=== PATIENT | male | born 1985 | race Caucasian/White ===

== ENCOUNTER 2021-05-20 12:26 | Emergency (ER) | payer SELFPAY ==
--- NOTE | ~2021-05-20 | XR_ITS ---
EXAMINATION: XR CHEST CLINICAL INFORMATION: Chest pain COMPARISON: None TECHNIQUE: Frontal view of the chest was obtained. FINDINGS: There is no pneumothorax or pleural reaction or effusion. The lungs are clear. There is no airspace consolidation or groundglass opacity. The heart is normal in size. The hilar and mediastinal contours and visualized bony structures are unremarkable. XR/XR chest 1V IMPRESSION: Unremarkable examination.
[2021-05-20 13:23] VITALS: BP 146/82; PULSE 59; RESP 20; TEMP 36.5; O2SAT 100; BMI 26.2
--- NOTE | 2021-05-20 13:27 | ECG_ITS ---
Test Reason : CHEST PAIN Blood Pressure : / mmHG Vent. Rate : 065 BPM Atrial Rate : 065 BPM P-R Int : 162 ms QRS Dur : 090 ms QT Int : 388 ms P-R-T Axes : 020 052 033 degrees QTc Int : 403 ms Normal sinus rhythm Normal ECG No previous ECGs available Referred By: Generic ED Physician Electronically Signed By:Mo Garibay
[2021-05-20 13:37] LABS: MANUAL DIFF FLAG NO
[2021-05-20 13:39] LABS: Basophils Percent Auto 0.2 % (0-2); Eosinophils Absolute Auto 0.1 X10*3/uL (0.0-0.4); Eosinophils Percent Auto 1.1 % (0-4); Hematocrit 45.8 % (42.0-52.0); Hemoglobin 15.9 g/dl (14.0-18.0); Imm Gran Abs Auto 0.03 X10*3/uL (0.00-0.03); Imm Gran Pct Auto 0.3 % (0.0-0.4); Lymphocytes Absolute Auto 1.7 X10*3/uL (1.2-4.9); Lymphocytes Percent Auto 19.2 % (20-40); Mean Corpuscular HGB Conc 34.7 g/dl (31.0-36.0); Mean Corpuscular Hemoglobin 30.8 pg (27.0-33.0); Mean Corpuscular Volume 88.8 fL (80.0-98.0); Mean Platelet Volume 9.6 fL (9.4-12.4); Monocytes Absolute Auto 0.5 X10*3/uL (0.1-1.2); Neutrophils Absolute Auto 6.4 x10*3/uL (2.0-8.3); Neutrophils Percent Auto 73.2 % (45-73); Platelet Count 214 X10*3/uL (160-400); Red Blood Count 5.16 X10*6/uL (4.60-5.80); Red Cell Distribution Width 12.7 % (11.0-16.0); White Blood Count 8.7 X10*3/uL (4.8-10.8)
[2021-05-20 13:52] LABS: Anion Gap 10 (12-20); Blood Urea Nitrogen 11 mg/dL (9-16); Calcium 9.5 mg/dL (8.4-10.2); Carbon Dioxide 25 mmol/L (22-29); Chloride 108 mmol/L (96-108); Creatinine Clr Calc Pharmacy 146.3; Estimated Glomerular Filt Rate > 60; Glucose Random 98 mg/dL (60-115); Potassium 4.1 mmol/L (3.3-5.1); Sodium 139 mmol/L (135-145)
[2021-05-20 13:58] LABS: Troponin-I High Sensitivity < 3.5 ng/L (<3.5-35.0)
--- NOTE | 2021-05-20 18:58 | ED_ITS ---
HPI - Chest Pain General Chief Complaint: Chest Pain Stated Complaint: chest pain diff breathing Time Seen by Provider: 05/20/21 18:46 Source: patient Mode of arrival: ambulatory Limitations: no limitations History of Present Illness HPI narrative: Patient comes emergency room complaining of chest pain on the left side that started approximately around noon while he was driving, then self-resolved 2 hours later. At this time, patient is asymptomatic, states that he has no chest pain, no shortness of breath, no other symptoms. Patient states it is the 1st time that it happens and scared his , who made him come to the emergency room Related Data Allergies Allergy/AdvReac Type Severity Reaction Status Date / Time No Known Allergies Allergy Unverified 05/20/21 13:28 Review of Systems Review of Systems: Constitutional : No Weight loss, No Fever, No Chills, No Night Sweats, No Fatigue, No Malaise ENT/Mouth : No Hearing loss, No Ear Pain, No Nasal Congestion, No Sinus Pain, No Hoarseness, No sore throat, No Rhinorrhea, No Swallowing Difficulty Eyes: No Eye Pain, No Swelling, No Redness, No Foreign Body, No Discharge, No Vision Changes Cardiovascular : 1 episode of chest pain that lasted couple of hours between noon and 14:00, patient has been pain-free for 5 hours. SOB, No Dyspnea on Exertion, No Orthopnea, No Edema, No Palpitations Respiratory : No Cough, No Sputum, No Wheezing, No Smoke Exposure, No Dyspnea Gastrointestinal : No Nausea, No Vomiting, No Diarrhea, No Constipation, No abdominal Pain, No Hematochezia, No Melena Genitourinary : no irregular bleeding, No Dysuria, No Urinary Frequency, No Hematuria, No Urinary Incontinence, No Urgency, No Flank Pain, No Urinary Flow Changes, No Hesitancy Musculoskeletal : No joint pain, No Myalgias, No Joint Swelling Skin : No Skin Lesions, No rash Neuro : No Weakness, No Numbness, No Paresthesias, No Loss of Consciousness, No Dizziness, No Headache Psych : No Anxiety/Panic, No Depression, No SI/HI/AH/VH, No Social Issues, Heme/Lymph: No Bruising, No Bleeding,No Lymphadenopathy Endocrine : No Polyuria, No Polydipsia, No Temperature Intolerance PMFSH Past Medical History Medical History Anxiety Depression Social History Social History Advance Directives: No Advance Directives Information Provided: Yes Physical Exam Vital Signs: Vital Signs: Last Vital Signs Temp 97.7 F 05/20/21 13:23 Pulse 59 05/20/21 13:23 Resp 20 05/20/21 13:23 BP 146/82 H 05/20/21 13:23 Pulse Ox 100 05/20/21 13:23 BMI result Body Mass Index 26.2 Const: Other: Appearance: Alert. Oriented X3. No acute distress. Eyes: Pupils equal, round and reactive to light. ENT: Pharynx normal. Neck: Normal inspection. Neck supple. No lymph nodes noted. No crepitus CVS: Normal heart rate and rhythm. Pulses normal. Normal S1 and S2 Respiratory: No respiratory distress. Breath sounds normal. No Wheezing. No rales Abdomen: Soft and nontender. No rigidity. No distention. good BS x4 Skin: Skin warm and dry. Normal skin color. Normal skin turgor. Extremities: No lower extremity edema. No Lacerations. No Rash Neuro: Oriented X 3. No motor deficit. No sensory deficit. Moving all extermities. No slurred speech. Course Course Course Narrative: I discussed the labs and imaging with the patient, no acute findings. Patient has been pain free for over 5 hours. Discussed with patient that if he continues having intermittent chest pains, he needs to follow up with his primary care physician and will likely need a stress test. MDM - Chest Pain Lab Data Result diagrams: 05/20/21 13:33 05/20/21 13:33 Labs: Lab Results 05/20/21 05/20/21 05/20/21 Range/Units 13:33 13:33 13:33 WBC 8.7 (4.8-10.8) X10*3/uL RBC 5.16 (4.60-5.80) X10*6/uL Hgb 15.9 (14.0-18.0) g/dl Hct 45.8 (42.0-52.0) % MCV 88.8 (80.0-98.0) fL MCH 30.8 (27.0-33.0) pg MCHC 34.7 (31.0-36.0) g/dl RDW 12.7 (11.0-16.0) % Plt Count 214 (160-400) X10*3/uL MPV 9.6 (9.4-12.4) fL Immature Gran % (Auto) 0.3 (0.0-0.4) % Neut % (Auto) 73.2 H (45-73) % Lymph % (Auto) 19.2 L (20-40) % [place] % (Auto) 6.0 (2-11) % Eos % (Auto) 1.1 (0-4) % Baso % (Auto) 0.2 (0-2) % Lymph # (Auto) 1.7 (1.2-4.9) X10*3/uL [place] # (Auto) 0.5 (0.1-1.2) X10*3/uL Eos # (Auto) 0.1 (0.0-0.4) X10*3/uL Baso # (Auto) 0.0 (0.0-0.2) X10*3/uL Abs Immat Gran (auto) 0.03 (0.00-0.03) X10*3/uL Absolute Neuts (auto) 6.4 (2.0-8.3) x10*3/uL Absolute Nucleated RBC 0.000 (0.0-0.012) X10*3/uL Nucleated RBC % (auto) 0.0 (0.0-0.2) /100WBC Sodium 139 (135-145) mmol/L Potassium 4.1 (3.3-5.1) mmol/L Chloride 108 (96-108) mmol/L Carbon Dioxide 25 (22-29) mmol/L Anion Gap 10 L (12-20) BUN 11 (9-16) mg/dL Creatinine 0.85 (0.5-1.4) mg/dL Estim Creat Clear Calc 146.3 Estimated GFR > 60 Random Glucose 98 (60-115) mg/dL Calcium 9.5 (8.4-10.2) mg/dL Troponin I High Sens < 3.5 (<3.5-35.0) ng/L Imaging Data Chest x-ray: Radiologist's impression: FINDINGS: There is no pneumothorax or pleural reaction or effusion. The lungs are clear. There is no airspace consolidation or groundglass opacity. The heart is normal in size. The hilar and mediastinal contours and visualized bony structures are unremarkable. XR/XR chest 1V IMPRESSION: Unremarkable examination. ECG Data ECG #1: Attestation: I personally reviewed and interpreted this ECG as follows: (Normal sinus rhythm, heart rate 65, no ST segment depression elevation, to person and dizzy for) Discharge Plan Discharge Clinical Impression: Atypical chest pain Patient Disposition: Home, Self-Care Instructions: Chest Pain (ED) Additional Instructions: Please follow-up with your primary care physician tomorrow. If you have any worsening or new symptoms, please return to the emergency room or call 911
== END 2021-05-20 19:07 | disposition home or self-care (01) ==
PROVIDERS: Emergency Provider Emergency Medicine
DX: R07.89 Other chest pain (principal)
CPT/HCPCS: 36415; 71045; 80048; 84484; 85025; 93005; 99283

== ENCOUNTER 2022-02-01 08:23 | Outpatient (REF) | payer OTHER, SELFPAY ==
--- NOTE | ~2022-02-01 | US_ITS ---
EXAMINATION: US SCROTUM CLINICAL INFORMATION: Right testicular pain. COMPARISON: None TECHNIQUE: A sonogram of the scrotum was performed assessing lebron-scale appearance and color Doppler flow. Spectral Doppler analysis of the arterial and venous flow were performed in the testes bilaterally. FINDINGS: RIGHT: Right testicle measures 4.83 x 2.17 x 3.19 cm, volume 17.5 mL. No focal testicular parenchymal lesions are visualized. Spectral Doppler analysis of the arterial and venous flow is normal in the right testis. Right epididymal head is normal in size. Small hydrocele. Right epididymal Doppler flow is normal. Varicocele noted. LEFT: Left testicle measures 4.90 x 1.95 x 3.51 cm, volume 17.6 mL. No focal testicular parenchymal lesions are visualized. Spectral Doppler analysis of the arterial and venous flow is normal in the left testis. Left epididymal head is normal in size. Small hydrocele. Left epididymal Doppler flow is normal. Varicocele noted. US/US scrotum IMPRESSION: Bilateral hydroceles and varicoceles.
[2022-02-01 11:09] LABS: MANUAL DIFF FLAG NO
[2022-02-01 11:32] LABS: Basophils Percent Auto 0.2 % (0-2); Eosinophils Absolute Auto 0.2 X10*3/uL (0.0-0.4); Eosinophils Percent Auto 3.4 % (0-4); Hematocrit 45.9 % (42.0-52.0); Hemoglobin 15.8 g/dl (14.0-18.0); Imm Gran Abs Auto 0.01 X10*3/uL (0.00-0.03); Imm Gran Pct Auto 0.2 % (0.0-0.4); Lymphocytes Absolute Auto 1.7 X10*3/uL (1.2-4.9); Lymphocytes Percent Auto 29.9 % (20-40); Mean Corpuscular HGB Conc 34.4 g/dl (31.0-36.0); Mean Corpuscular Hemoglobin 30.4 pg (27.0-33.0); Mean Corpuscular Volume 88.3 fL (80.0-98.0); Mean Platelet Volume 10.9 fL (9.4-12.4); Monocytes Absolute Auto 0.5 X10*3/uL (0.1-1.2); Monocytes Percent Auto 8.6 % (2-11); Neutrophils Absolute Auto 3.2 x10*3/uL (2.0-8.3); Neutrophils Percent Auto 57.7 % (45-73); Platelet Count 251 X10*3/uL (160-400); Red Cell Distribution Width 12.8 % (11.0-16.0); White Blood Count 5.6 X10*3/uL (4.8-10.8)
[2022-02-01 11:33] LABS: Appearance Urine Turbid; Color Urine Yellow; Glucose Urine UA Negative (Negative); Leukocyte Esterase Urine Trace (Negative); Nitrite Urine Negative (Negative); Specific Gravity - Urine 1.025 (1.005-1.025); Urine Blood Negative (Negative); Urine Ketones Negative (Negative); Urine Protein Negative (Neg-Trace)
[2022-02-01 11:40] LABS: Bacteria Urine None Seen (None Seen); Hyaline Casts Urine 0-2 /LPF (0-2); RBC Urine 0-2 /HPF (0-2); Squamous Epithelial Cell Urine 0-2 /HPF (0-2); WBC Urine 0-5 /HPF (0-5)
[2022-02-01 11:44] LABS: UACC Culture Trigger NO
[2022-02-01 12:05] LABS: Alanine Aminotransferase 24 U/L (0-40); Albumin Level 4.2 g/dL (3.5-5.0); Alkaline Phosphatase 80 U/L (39-117); Anion Gap 13 (12-20); Aspartate Amino Transferase 25 U/L (5-37); Bilirubin Total 0.5 mg/dL (0.0-1.0); Blood Urea Nitrogen 14 mg/dL (9-16); Calcium 8.9 mg/dL (8.4-10.2); Carbon Dioxide 22 mmol/L (22-29); Chloride 110 mmol/L (96-108); Cholesterol 196 mg/dL; Estimated Glomerular Filt Rate > 60; Glucose Fasting 103 mg/dL (60-99); HDL Cholesterol 42 mg/dL; LDL Cholesterol Calculated 138 mg/dl; Potassium 4.3 mmol/L (3.3-5.1); Sodium 141 mmol/L (135-145); Total Protein 6.3 g/dL (6.5-8.0); Triglycerides 84 mg/dL
[2022-02-01 12:07] LABS: TSH reflex Free T4 0.88 uIU/mL (0.32-4.0)
== END 2022-02-01 08:24 | disposition home or self-care (01) ==
LOC: HO.HMGCX 08:23
PROVIDERS: PCP Nurse Practitioner Family; Visit Provider Nurse Practitioner Family
DX: Z00.00 Encounter for general adult medical examination without abnormal findings (principal); N50.811 Right testicular pain; Z80.43 Family history of malignant neoplasm of testis
CPT/HCPCS: 36415; 76870; 80053; 80061; 81001; 84443; 85025

== ENCOUNTER 2022-11-10 12:12 | Outpatient (REF) | payer OTHER, SELFPAY ==
--- NOTE | ~2022-11-10 | XR_ITS ---
EXAMINATION: XR FINGER, RIGHT CLINICAL INFORMATION: Painful thumb COMPARISON: None available. TECHNIQUE: 3 views of the right thumb. FINDINGS: The bones and soft tissues are unremarkable. A tiny osteophyte is present on the dorsal surface of the proximal end of the distal phalanx. No fracture. Alignment is anatomic. Joint spaces are maintained. XR/XR finger RT min 2V IMPRESSION: Minimal degenerative change. No acute finding.
== END 2022-11-10 12:13 | disposition home or self-care (01) ==
LOC: HO.HMGCX 12:12
PROVIDERS: PCP Nurse Practitioner Family; Visit Provider Nurse Practitioner Family
DX: M79.644 Pain in right finger(s) (principal)
CPT/HCPCS: 73140

== ENCOUNTER 2022-12-09 11:58 | Outpatient (REF) | payer OTHER, SELFPAY ==
--- NOTE | ~2022-12-09 | XR_ITS ---
EXAMINATION: XR HAND, RIGHT CLINICAL INFORMATION: Right hand pain COMPARISON: November 10, 2022 TECHNIQUE: PA, lateral, and oblique views of the right hand. FINDINGS: The bones and soft tissues are normal. No fracture. Alignment is anatomic. Joint spaces are maintained. No erosions or soft tissue calcifications. XR/XR hand RT min 3V IMPRESSION: Normal right hand.
== END 2022-12-09 11:59 | disposition home or self-care (01) ==
LOC: HO.HOSX 11:58
PROVIDERS: Visit Provider Physician Assistant
DX: S60.111A Contusion of right thumb with damage to nail, initial encounter (principal)
CPT/HCPCS: 73130

== ENCOUNTER 2022-12-09 12:46 | Outpatient (AMB) | payer OTHER, SELFPAY ==
[2022-12-09 12:54] VITALS: BMI 25.0
--- NOTE | 2022-12-09 12:54 | MHC.OFFVIS ---
Intake Vital Signs 12/09/22 12:54 Height 6 ft 3 in Weight 200 lb BMI 25.0 Intake Visit Reasons: New Pt - right thumb pain, DOI 11/10/22 Intake Note: Inder 37 yr old male who is right hand dominant presents today with his son Boy for his right thumb pain. States his shut his car door on his thumb 11/10/22. States he saw his PCP and was referred to orthopedic. Currently states he has on and off numbness and pain with use of thumb. Patient has concerns of infection. Allergies No Known Allergies Allergy (Verified 12/09/22 12:58) HPI New Pt - right thumb pain, DOI 11/10/22 HPI Details 37-year-old right hand dominant male who presents in the office today with is son Boy, as a new patient, for an evaluation of right thumb pain. The patient was seen in the Walk-In clinic on 11/10/2022 status post closing his thumb in the car door. The patient reports he has intermittent numbness and pain with use of the thumb. He expresses a concern for infection. [facility] Medical History Anxiety Depression Family History Father Substance use disorder Mental health disorder Mother Mental health disorder Social History Housing: Apartment Patient Tobacco Use Status: Current everyday Tobacco user Cigarette Packs Per Day: 1 e-Cigarette/Vaping Use: Never Used Second Hand Smoke Exposure: Yes service: No Current occupational status: employed Current occupation: [employer] Current occupational exposures/hazards: Yes Cognitive needs: No Hearing needs: No Vision needs: No Review of Systems Const All systems reviewed & are unremarkable except as noted in HPI and below Physical Exam Vital Signs: BMI result Body Mass Index 25.0 Const General: cooperative and no acute distress Orientation/consciousness: patient oriented x3 Resp Effort & Inspection: normal respiratory effort and able to speak in complete sentences Cardio Rate: regular rate Peripheral pulses: Peripheral pulses 2+ throughout GI Palpation (GI): Soft to palpation Skin Lesions: no lesions Rashes: no rashes Neuro General: patient oriented x3 Extrem Other: Right thumb: Subungual hematoma noted. Nail bed has begun to separate from the matrix. No signs of infection. Able to flex at the IP joint. No laxity with radial or ulnar deviation at the CMC or PIP joint. Able to perform full finger flexion, extension, abduction, adduction, finger cross, okay sign, and thumbs up without deficit. Able to make a closed fist. Psych Mental Status: mental status grossly normal Assessment & Plan Assessment & Plan (1) Contusion of right thumb: Code(s): S60.011A - Contusion of right thumb without damage to nail, initial encounter (2) Subungual hematoma of right thumb: Code(s): S60.111A - Contusion of right thumb with damage to nail, initial encounter Plan Mr. Langford is a 37-year-old right hand dominant male who presents in the office today with is son Boy, as a new patient, for an evaluation of right thumb pain. The patient was seen in the Walk-In clinic on 11/10/2022 status post closing his thumb in the car door. The patient reports he has intermittent numbness and pain with use of the thumb. He expresses a concern for infection. The patient can return to normal activities as tolerated. He was educated on signs of infection, which are as follows but not limited to erythema, edema, drainage, or warmth. If he is to experience any of these symptoms he is to contact the office immediately or present to the ED. Follow up will be PRN, or sooner if needed. X-rays of the right hand which were obtained while in the office today and were reviewed by me, Hermila Morales PA-C, revealed no acute fractures or dislocation. Orders: Orders XR hand RT min 3V Today M79.643 - Pain in unspecified hand Patient Instructions: Scribed for Hermila Morales PA-C by Camille Cruz senior medical writer, on 12/09/2022 at 12:51 pm, EST. Your attestation Coding Level of Care Code New Pt Level 4 (32069) Diagnoses Contusion of right thumb S60.011A Subungual hematoma of right thumb S60.111A
== END 2022-12-09 13:18 | disposition home or self-care (01) ==
PROVIDERS: PCP Nurse Practitioner Family; Visit Provider Physician Assistant
DX: S60.111A Contusion of right thumb with damage to nail, initial encounter (principal)
CPT/HCPCS: 99203

== ENCOUNTER 2023-02-08 09:22 | Outpatient (AMB) | payer OTHER, SELFPAY ==
--- NOTE | 2023-02-08 09:30 | MHC.PC.OV ---
Vital Signs 02/08/23 09:31 Height 6 ft 3 in Weight 197 lb 4 oz BMI 24.7 BP 110/70 Blood Pressure Location Rt brachial Position Sitting Pulse 73 Pulse Source Pulse Oximeter Pulse Oximetry (%) 97 Oxygen Delivery Method Room Air Intake Visit Reasons: Annual PE/Over due Allergies No Known Allergies Allergy (Verified 02/08/23 09:32) Tobacco use date assessed: 02/08/23 Dental Screening Dental Screen Date: 02/08/23 Did you have a dental visit in the last 12 months?: No Did you have a dental problem in the last 6 months where you did not have access to dental care?: No Was dental information given to patient?: Patient has dentist HPI Annual PE/Over due HPI Details Pt is here for a PE. Will order labs. Pt is interested in seeing a therapist. He reports family issues that are causing increased anxiety/depression. Will have coordinator speak with pt. Denies any SI and HI. PFSH Medical History Depression Anxiety Family History Father Substance use disorder Mental health disorder Mother Mental health disorder Social History Housing: Apartment Patient Tobacco Use Status: Current everyday Tobacco user Cigarette Packs Per Day: 1 e-Cigarette/Vaping Use: Never Used Second Hand Smoke Exposure: Yes service: No Current occupational status: employed Current occupation: [employer] Current occupational exposures/hazards: Yes Cognitive needs: No Hearing needs: No Vision needs: No Questionnaire Thrive Questionnaire Date Thrive assessed: 11/09/21 MEGAN-7 AMB Questionnaire MEGAN-7 Date MEGAN - 7 assessed: 11/09/21 Source: Developed by Drs. Ej Martínze, Edelmira Chou, Juan Carlos Smith and colleagues, with an educational dorene from [employer]. Review of Systems Const Denies chills and Denies fever(s) Eyes Denies blurry vision ENT Denies vertigo, Denies dizziness and Denies sore throat Card Denies chest pain at rest, Denies chest pain with activity, Denies diaphoresis, Denies dyspnea and Denies dyspnea on exertion Resp Denies cough, Denies dyspnea, Denies dyspnea on exertion and Denies wheezing GI Denies abdominal pain, Denies melena, Denies hematochezia, Denies constipation, Denies diarrhea and Denies loose stools Denies hematuria Musc Denies numbness and Denies tingling Skin/Breast Denies lesions Neuro Denies vertigo, Denies dizziness, Denies numbness and Denies tingling Psych Reports anxiety, Reports depression, Denies homicidal ideation, Denies suicidal ideation and Denies other (substance abuse) Aller/Immun Denies wheezing Physical exam (Primary Care) Vital Signs: Last Vital Signs Pulse 73 02/08/23 09:31 BP 110/70 02/08/23 09:31 Pulse Ox 97 02/08/23 09:31 Oxygen Delivery Method Room Air 02/08/23 09:31 BMI result Body Mass Index 24.7 Tobacco/Smoking Status: Tobacco use Status Tobacco use date assessed 02/08/23 02/08/23 09:34 Patient Tobacco Use Status Current everyday Tobacco 02/08/23 09:34 e-Cigarette/Vaping Use Never Used 02/08/23 09:34 Thrive Assessment: Date of Thrive Assessment Date Thrive assessed 11/09/21 02/08/23 09:34 Const General: cooperative Nutritional Appearance: well nourished Orientation/consciousness: patient oriented x3 HENMT Head: Yes normal to inspection, Yes normocephalic and Yes atraumatic Ears: TM's normal bilaterally Eyes General: appearance normal, both eyes and all related structures Alignment and Position: alignment normal and position normal Neck Neck: Yes normal visual inspection and Yes no lymphadenopathy Thyroid: Thyroid normal Resp Effort & Inspection: normal respiratory effort Auscultation: clear to auscultation bilaterally Cardio Rate: regular rate Rhythm: regular rhythm Heart sounds: S1 normal heart sound present, S2 normal heart sound present and no murmurs GI Palpation (GI): Soft to palpation and nontender Auscultation: normal bowel sounds Male General Exam: Yes normal external exam Penis: normal penis Scrotum: scrotum normal, testes descended bilaterally and no inguinal hernias Testes: no testicular mass Skin Rashes: no rashes Neuro General: patient oriented x3, moves all extremities, no focal motor deficits and deep tendon reflexes 2+ bilaterally Romberg Test: Negative Psych Appearance: grossly normal Mental Status: mental status grossly normal Speech and movement: Normal speech and movement present Affect: normal affect Attitude: cooperative Thought process: Normal thought process present Thought content: Normal thought content present Insight: Good insight present (Psych) Judgement: Good judgement present (Psych) Assessment and Plan Assessment & Plan (1) Physical exam: Code(s): Z00.00 - Encounter for general adult medical examination without abnormal findings Plan: Labs ordered Plan The patient agreed to the use of a medical chief technician for this encounter. Scribed for EMPERATRIZ Mallory by Katie Herzog medical chief technician, on 02/08/2023 at 09:45 EST. Orders: Orders Complete Blood Count Auto Diff Today Z00.00 - Encounter for general adult medical examination without abnormal findings TSH reflex Free T4 Today Z00.00 - Encounter for general adult medical examination without abnormal findings Comprehensive [place]. Panel Fast Today Z00.00 - Encounter for general adult medical examination without abnormal findings UA CC w/rflx Micro + Cult Today Z00.00 - Encounter for general adult medical examination without abnormal findings Lipid Panel Today Z00.00 - Encounter for general adult medical examination without abnormal findings Coding Level of Care Code Est Pt Prev Care 18-39y(58961) Diagnoses Physical exam Z00.00
[2023-02-08 09:31] VITALS: BP 110/70; PULSE 73; O2SAT 97; BMI 24.7
== END 2023-02-08 10:34 | disposition home or self-care (01) ==
PROVIDERS: Visit Provider Nurse Practitioner Family
DX: Z00.00 Encounter for general adult medical examination without abnormal findings (principal)
CPT/HCPCS: 99395

== ENCOUNTER 2024-07-31 08:07 | Outpatient (AMB) | payer BC, SELFPAY ==
[2024-07-31 08:09] VITALS: BP 130/80; PULSE 86; TEMP 37.3; O2SAT 98
--- NOTE | 2024-07-31 08:09 | AM.OFFWIN_ITS ---
Intake Vital Signs 07/31/24 08:09 Weight 220 lb BP 130/80 Blood Pressure Location Lt brachial Position Sitting Pulse 86 Pulse Source Pulse Oximeter Temp 99.2 F Temp Source Oral Pulse Oximetry (%) 98 Oxygen Delivery Method Room Air Intake Visit Reasons: EP Strep? Intake Note: Patient here for sore throat that has been present for a couple of days. Patient Tobacco Use Status: Current everyday Tobacco user Allergies No Known Allergies Allergy (Verified 07/31/24 08:13) Do you need a note to return to daycare/school/sports/work: Yes HPI HPI Comments History of Present Illness Details History - The patient is a 39-year-old male pres enting with a sore throat x a few days - The sore throat is described as sudden in onset, localized predominantly on the left side, alongside difficult and painful swallowing. - Produces yellow mucus; however, denies fever but notes feeling warm occasionally. - Congestion and a dry cough are reporte d, with temporary relief from hot showers. - White patches observed in the throat w ith no previous history of swollen lymph nodes due to tonsillectomy during childhood. - Smoker, recent exposure to variable il lnesses in his social contact. - the patient has taken [id number] medication for congestion. Physical Exam General: Cooperative, healthy appearing, comfortable and no acute distress Orientation/consciousness: Patient oriented x3 Limitations: No limitations Head: Normal to inspection Ears: Hearing grossly normal bilaterally, external ears normal and TM's normal b ilaterally Nose: Normal external nose present, Normal nares present and No nasal discharge present Face and sinus: Normal facial exam and Sinuses tender, especially on the left side Mouth: Normal oral and palatal mucosa present and moist mucous membranes Throat: No tonsils present, Uvula midline. Posterior oropharynx erythema, white patches noted on upper left side Eyes: Appearance normal, both eyes and all related structures Neck: Normal visual inspection Respiratory: Normal respiratory effort, able to speak in complete sentences, no respiratory distress, not tachypneic, no tripod positioning and no use of accessory muscles Skin: No rashes or lesions noted Neuro: Patient oriented x3 Extremities: Normal to inspection and Yes no clubbing, cyanosis or edema PFSH Medical History Depression Anxiety Family History Father Substance use disorder Mental health disorder Mother Mental health disorder Social History Housing: Apartment Patient Tobacco Use Status: Current everyday Tobacco user Cigarette Packs Per Day: 1 e-Cigarette/Vaping Use: Never Used Second Hand Smoke Exposure: Yes service: No Current occupational status: employed Current occupation: [employer] Current occupational exposures/hazards: Yes Cognitive needs: No Hearing needs: No Vision needs: No Review of Systems Const All systems reviewed & are unremarkable except as noted in HPI and below Physical Exam Vital Signs: Last Vital Signs Temp 99.2 F 07/31/24 08:09 Pulse 86 07/31/24 08:09 BP 130/80 07/31/24 08:09 Pulse Ox 98 07/31/24 08:09 Oxygen Delivery Method Room Air 07/31/24 08:09 Assessment & Plan Assessment & Plan (1) Strep pharyngitis: Code(s): J02.0 - Streptococcal pharyngitis Plan: The patient presents with symptoms consistent with acute pharyngitis, and possible sinus involvement, raising suspicion for a bacterial infection. To confirm the diagnosis, a throat culture and viral tests are underway. Empirical treatment with Amoxicillin, every 12 hours for 10 days, is initiated while awaiting results, ensuring bacterial coverage if strep or another bacterial cause is confirmed. Also sent Flu, Covid and RSV testing. Patient education on contagiousness was provided, recommending a brief work absence to mitigate spread, considering co-workers' proximity to vulnerable persons. No diagnostic measures for smoking cessation were commenced, despite advice on its importance. Patient was informed and verbally consented to the use of an ambient scribe for clinic note documentation during this visit Orders: Orders SARS-CoV2/FLU/RSV Today R09.89 - Other specified symptoms and signs involving the circulatory and respiratory systems Throat Culture Today J02.9 - Acute pharyngitis, unspecified Medications: New amoxicillin 500 mg PO Q12H 20 tabs 0RF Coding Level of Care Code Est Pt Level 3 (64811) Diagnoses Strep pharyngitis J02.0
== END 2024-07-31 08:37 | disposition home or self-care (01) ==
PROVIDERS: PCP Nurse Practitioner Family; Visit Provider Physician Assistant
DX: Z13.9 Encounter for screening, unspecified (principal); J02.0 Streptococcal pharyngitis

== ENCOUNTER 2024-07-31 08:07 | Outpatient (REF) | payer BC, SELFPAY ==
[2024-07-31 12:59] LABS: Influenza A PCR NEGATIVE (Negative); Influenza B PCR NEGATIVE (Negative); Resp Syncy Virus RNA Qual PCR NEGATIVE (Negative); SARS COV2 PCR INHOUSE NEGATIVE (Negative)
== END 2024-07-31 08:08 | disposition home or self-care (01) ==
LOC: HO.LAB 08:07
PROVIDERS: Physician Assistant; PCP Nurse Practitioner Family
DX: J02.0 Streptococcal pharyngitis (principal); R09.89 Other specified symptoms and signs involving the circulatory and respiratory systems; R05.8 Other specified cough
CPT/HCPCS: 0241U; 87070; 87147; 87880

== ENCOUNTER 2024-09-04 12:14 | Outpatient (AMB) | payer BC, SELFPAY ==
--- NOTE | 2024-09-04 12:48 | AM.OFFWIN_ITS ---
Intake Vital Signs 09/04/24 12:49 Weight 217 lb BP 114/80 Blood Pressure Location Rt brachial Position Sitting Pulse 75 Pulse Source Pulse Oximeter Pulse Oximetry (%) 98 Oxygen Delivery Method Room Air Intake Visit Reasons: EP Neck pain (LT side) 1 week Intake Note: Patient here for left sided neck pain that has been present for almost 2 weeks. Patient Tobacco Use Status: Current everyday Tobacco user Allergies No Known Allergies Allergy (Verified 09/04/24 12:49) Do you need a note to return to daycare/school/sports/work: Yes HPI HPI Comments History of Present Illness Details This is a 39-year-old male with no stated past medical history presenting for evaluation of neck pain that he has had for the past 1 week. Patient denies any injury or trauma preceding the onset of his symptoms and he has not taken any medication for treatment of his discomfort. Patient states that he had an aching sensation in the right side of his neck initially 1 week ago however over the weekend that resolved and the pain radiated to his left side. He denies any radiation of pain into his upper extremities. Patient has been using a heating pad for comfort. [facility] Medical History Depression Anxiety Family History Father Substance use disorder Mental health disorder Mother Mental health disorder Social History Housing: Apartment Patient Tobacco Use Status: Current everyday Tobacco user Cigarette Packs Per Day: 1 e-Cigarette/Vaping Use: Never Used Second Hand Smoke Exposure: Yes service: No Current occupational status: employed Current occupation: [employer] Current occupational exposures/hazards: Yes Cognitive needs: No Hearing needs: No Vision needs: No Review of Systems Const All systems reviewed & are unremarkable except as noted in HPI and below Denies chills, Denies fatigue and Denies fever(s) Eyes Denies change in vision ENT Reports Normal hearing present and Reports neck pain Card Reports no additional complaints Resp Reports no additional complaints GI Reports no additional complaints Reports no additional complaints Musc Reports neck pain, Denies numbness and Denies tingling Skin/Breast Reports system reviewed and no additional complaints, except as documented Neuro Reports no additional complaints, Reports Normal hearing present, Denies numbness and Denies tingling Endo Reports no additional complaints and Denies fatigue Memo/Lymph Reports no additional complaints Physical Exam Vital Signs: Last Vital Signs Pulse 75 09/04/24 12:49 BP 114/80 09/04/24 12:49 Pulse Ox 98 09/04/24 12:49 Oxygen Delivery Method Room Air 09/04/24 12:49 Const General: cooperative, healthy appearing, comfortable, no acute distress, well developed, alert, awake and Physically active; No acute distress Nutritional Appearance: average body habitus Orientation/consciousness: patient oriented x3 Limitations: no limitations Back/Spine/Pelvis Cervical Spine: normal cervical lordosis, cervical ROM normal, No Lhermitte's sign positive, cervical muscular tenderness (left), No pain with cervical ROM, No Cervical spine tenderness and No step off deformity Skin General skin exam: no rashes or lesions noted Neuro General: patient oriented x3 Cranial nerves: Yes Normal hearing present Psych Appearance: grossly normal Mental Status: mental status grossly normal Insight: Good insight present (Psych) Judgement: Good judgement present (Psych) Assessment & Plan Assessment & Plan (1) Cervical strain, acute: Comment: There is no midline tenderness noted on examination and imaging is is deferred at this time. Code(s): S16.1XXA - Strain of muscle, fascia and tendon at neck level, initial encounter Qualifiers: Encounter type: initial encounter Qualified Code(s): S16.1XXA - Strain of muscle, fascia and tendon at neck level, initial encounter Plan: Prednisone 40 mg x 5 days. Patient will continue to use his heating pad for comfort as needed. Patient will follow up with his primary care provider as needed. Medications: New prednisone 40 mg (2 x 20 mg) PO DAILY 10 tabs 0RF Coding Level of Care Code Est Pt Level 3 (77679) Diagnoses Acute strain of neck muscle, initial encounter S16.1XXA Encounter type: initial encounter
[2024-09-04 12:49] VITALS: BP 114/80; PULSE 75; O2SAT 98
== END 2024-09-04 13:53 | disposition home or self-care (01) ==
PROVIDERS: PCP Nurse Practitioner Family; Visit Provider Physician Assistant
DX: S16.1XXA Strain of muscle, fascia and tendon at neck level, initial encounter (principal)

== ENCOUNTER → 2024-09-04 12:14 | Outpatient (BNVA) | payer BC, SELFPAY | PROVIDERS: PCP Nurse Practitioner Family; Visit Provider Physician Assistant | DX: Z13.89 Encounter for screening for other disorder (principal) ==

== ENCOUNTER 2024-12-12 16:22 | Outpatient (AMB) | payer BC, SELFPAY ==
[2024-12-12 16:25] VITALS: BP 136/78; PULSE 86; TEMP 37; O2SAT 98; BMI 27.7
--- NOTE | 2024-12-12 16:25 | AM.OFFWIN_ITS ---
Intake Vital Signs 12/12/24 16:25 Height 6 ft 3 in Weight 222 lb BMI 27.7 BP 136/78 Blood Pressure Location Rt brachial Position Sitting Pulse 86 Pulse Source Pulse Oximeter Temp 98.6 F Temp Source Oral Pulse Oximetry (%) 98 Oxygen Delivery Method Room Air Intake Visit Reasons: EP-lt knee pain Intake Note: presents with left knee pain, denies injury Patient Tobacco Use Status: Current everyday Tobacco user Allergies No Known Allergies Allergy (Verified 12/12/24 16:26) Do you need a note to return to daycare/school/sports/work: No HPI HPI Comments History of Present Illness Details History - The patient is a 39-year-old male pres enting with left knee pain and swelling. - The knee pain began suddenly without a known injury, initially presenting as a clicking sound without pain. - The following day, the pain increased with walking, accompanied by swelling. - The patient denies any history of knee injury or arthritis. 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 - Denies fevers. - The pain is exacerbated by weight-bear ing and bending the knee beyond a certain point. Physical Exam General: Cooperative, healthy appearing, comfortable, no acute distress and well developed Orientation: Patient oriented x3 Limitations: No limitations Head: Normal to inspection Ears: Hearing grossly normal bilaterally Nose: Normal External nose present Face and sinus: Normal facial exam Mouth: normal, moist oral mucosa Eyes: Appearance normal, both eyes and all related structures Neck: Normal visual inspection and Yes full ROM Respiratory: Normal respiratory effort and able to speak in complete sentences. Skin: no rashes or lesions noted Neuro: Patient oriented x3 Extremities: moving all extremities normally, No laxity in the joints, negative patellar ballottment. left knee with full ROM, TTP infrapatellar bursa left knee. [facility] Medical History Depression Anxiety Family History Father Substance use disorder Mental health disorder Mother Mental health disorder Social History Housing: Apartment Patient Tobacco Use Status: Current everyday Tobacco user Cigarette Packs Per Day: 1 e-Cigarette/Vaping Use: Never Used Second Hand Smoke Exposure: Yes service: No Current occupational status: employed Current occupation: [employer] Current occupational exposures/hazards: Yes Cognitive needs: No Hearing needs: No Vision needs: No Review of Systems Const All systems reviewed & are unremarkable except as noted in HPI and below Physical Exam Vital Signs: Last Vital Signs Temp 98.6 F 12/12/24 16:25 Pulse 86 12/12/24 16:25 BP 136/78 12/12/24 16:25 Pulse Ox 98 12/12/24 16:25 Oxygen Delivery Method Room Air 12/12/24 16:25 BMI result Body Mass Index 27.7 Assessment & Plan Assessment & Plan (1) Swelling of left knee joint: Code(s): M25.462 - Effusion, left knee Plan: Plan Patient was informed and verbally consented to the use of an ambient scribe for clinic note documentation during this visit Knee Bursitis - Recommend rest, ice application, and naproxen 220 mg twice daily for 3-4 days. - Apply an Rene wrap for compression and support. - Work note for tomorrow. Possibly 2/2 Lyme Disease - Lyme disease test recommended to rule out infection. - Patient advised to visit the lab for testing when convenient. Orders: Orders Lyme IgG/IgM w/reflex to [facility] Today M25.462 - Effusion, left knee, W57.XXXA - Bitten or stung by nonvenomous insect and other nonvenomous arthropods, initial encounter Coding Level of Care Code Est Pt Level 3 (35160) Diagnoses Swelling of left knee joint M25.462
== END 2024-12-12 16:43 | disposition home or self-care (01) ==
PROVIDERS: PCP Nurse Practitioner Family; Visit Provider Physician Assistant
DX: M25.462 Effusion, left knee (principal)

== ENCOUNTER 2024-12-12 16:22 | Outpatient (REF) | payer BC, SELFPAY | END 2024-12-12 16:23 | disposition home or self-care (01) | LOC: HO.LAB 16:22 | PROVIDERS: PCP Nurse Practitioner Family | DX: Z13.89 Encounter for screening for other disorder (principal) ==

== ENCOUNTER 2025-01-03 15:16 | Outpatient (AMB) | payer BC, SELFPAY ==
[2025-01-03 15:37] VITALS: BP 132/98; PULSE 74; TEMP 36.9; O2SAT 98; BMI 28.5
--- NOTE | 2025-01-03 15:37 | AM.OFFWIN_ITS ---
Intake Vital Signs 01/03/25 15:37 Height 6 ft 3 in Weight 228 lb BMI 28.5 BP 132/98 H Blood Pressure Location Lt brachial Position Sitting Pulse 74 Pulse Source Pulse Oximeter Temp 98.5 F Temp Source Oral Pulse Oximetry (%) 98 Oxygen Delivery Method Room Air Intake Visit Reasons: EP Sore throat Intake Note: presents with continuous sore throat and pain further down throat inducing coughing Patient Tobacco Use Status: Current everyday Tobacco user Allergies No Known Allergies Allergy (Verified 01/03/25 15:40) Do you need a note to return to daycare/school/sports/work: No HPI HPI Comments History of Present Illness Details History of Present Illness - The patient is a 39-year-old male pres enting with a sore throat. - The sore throat has been present for t hree days and is painful upon swallowing. - The patient reports associated coughin g, which produces clear mucus. - There is no associated fever, ear pain , or postnasal drip. - The patient has experienced fatigue bu t denies any significant systemic symptoms. - He denies fever, chills, CP, SOB, abd pain, n/v/d, DACOSTA, or sick contacts. Physical Exam General: Cooperative, healthy appearing, comfortable, no acute distress and well developed Orientation: Patient oriented x3 Limitations: No limitations Head: Normal to inspection Ears: Hearing grossly normal bilaterally Nose: Normal external nose present Face and sinus: Normal facial exam Mouth: Uvual is midline. Pharynx is erythematous, no exudates. No tonsils noted. Moist mucosa noted. Eyes: Appearance normal, both eyes and all related structures Neck: Normal visual inspection and Yes full ROM. No lymphadenopathy noted. Respiratory: Normal respiratory effort and able to speak in complete sentences. Clear to auscultation bilaterally. Cardiovascular: Regular rate and rhythm. Normal S1 and S2 GI: Normal to inspection. Soft to palpation and nontender Skin: No rashes or lesions noted Patient was informed and verbally consented to the use of an ambient scribe for clinic note documentation during this visit. [facility] Medical History Depression Anxiety Family History Father Substance use disorder Mental health disorder Mother Mental health disorder Social History Housing: Apartment Patient Tobacco Use Status: Current everyday Tobacco user Cigarette Packs Per Day: 1 e-Cigarette/Vaping Use: Never Used Second Hand Smoke Exposure: Yes service: No Current occupational status: employed Current occupation: [employer] Current occupational exposures/hazards: Yes Cognitive needs: No Hearing needs: No Vision needs: No Review of Systems Const All systems reviewed & are unremarkable except as noted in HPI and below Physical Exam Vital Signs: Last Vital Signs Temp 98.5 F 01/03/25 15:37 Pulse 74 01/03/25 15:37 BP 132/98 H 01/03/25 15:37 Pulse Ox 98 01/03/25 15:37 Oxygen Delivery Method Room Air 01/03/25 15:37 BMI result Body Mass Index 28.5 Assessment & Plan Assessment & Plan (1) Sore throat: Code(s): J02.9 - Acute pharyngitis, unspecified Plan Most likely strep vs URI vs covid vs flu vs RSV vs viral illness Rapid strep is negative Plan - Perform COVID-19, flu, and RSV testing to rule out viral infections. - Conduct a rapid strep test to exclude bacterial pharyngitis. - If tests are negative, recommend symptomatic treatment with throat lozenges, lemon, honey, and tea. Orders: Orders SARS-CoV2/FLU/RSV Today R09.89 - Other specified symptoms and signs involving the circulatory and respiratory systems Coding Level of Care Code Est Pt Level 3 (95816) Diagnoses Sore throat J02.9
== END 2025-01-03 16:52 | disposition home or self-care (01) ==
PROVIDERS: PCP Nurse Practitioner Family; Visit Provider Physician Assistant Medical
DX: J02.9 Acute pharyngitis, unspecified (principal)

== ENCOUNTER 2025-01-03 15:16 | Outpatient (REF) | payer SELFPAY ==
[2025-01-04 11:20] LABS: Resp Syncy Virus RNA Qual PCR NEGATIVE (Negative); SARS COV2 PCR INHOUSE NEGATIVE (Negative)
== END 2025-01-03 15:17 | disposition home or self-care (01) ==
LOC: HO.LNP 15:16
PROVIDERS: PCP Nurse Practitioner Family; Visit Provider Physician Assistant Medical
DX: R09.89 Other specified symptoms and signs involving the circulatory and respiratory systems (principal); J02.9 Acute pharyngitis, unspecified; F17.210 Nicotine dependence, cigarettes, uncomplicated
CPT/HCPCS: 87637; 87880

== ENCOUNTER 2025-01-04 17:58 | Emergency (ER) | payer BC, SELFPAY ==
[2025-01-04 18:37] VITALS: BP 168/93; PULSE 81; RESP 18; TEMP 36.9; O2SAT 96; BMI 28.7
--- NOTE | 2025-01-04 18:37 | ED.URI ---
HPI - URI/Sore Throat General Chief Complaint: General Medical Stated Complaint: throat pain Time Seen by Provider: 01/04/25 18:45 Source: patient Mode of arrival: ambulatory Limitations: no limitations History of Present Illness ED Provider: Teodora Benites APRN HPI Narrative: This is a 39-year-old male who has no medical history presents to the ER with complaints of sore throat for 4 days. Patient reports he went to urgent care yesterday and was negative for strep, flu, COVID, RSV. Patient reports continued symptoms prompting his ER visit. He denies any difficulty swallowing, difficulty breathing. No fevers, chills, neck pain, neck stiffness, skin rash, cough, shortness of breath, chest pain. Related Data Home Medications ?Medication ?Instructions ?Recorded ?Confirmed No Known Home Meds 01/03/25 Allergies Allergy/AdvReac Type Severity Reaction Status Date / Time No Known Allergies Allergy Verified 01/04/25 18:39 Review of Systems Review of Systems: Yes all other systems are reviewed and are negative Constitutional: Constitutional: Reports no additional constitutional complaints, Denies body ache(s), Denies chills, Denies fever(s), Denies headache(s) and Denies weakness Eyes: Eyes: Reports no additional eye complaints and Denies change in vision ENT: Reports system reviewed and no additional complaints, except as documented, Denies dizziness, Denies headache(s), Denies nasal congestion, Denies nasal discharge, Denies neck pain and Reports sore throat Cardiovascular: Cardiovascular: Reports no additional cardiovascular complaints, Denies chest pain, Denies leg edema and Denies dyspnea Respiratory: Respiratory: Reports no additional respiratory complaints, Denies cough and Denies dyspnea Gastrointestinal: Gastrointestinal: Reports no additional gastrointestinal complaints, Denies abdominal pain, Denies diarrhea, Denies nausea and Denies vomiting Genitourinary: Genitourinary: Denies urinary incontinence Musculoskeletal: Musculoskeletal: Reports no additional musculoskeletal complaints, Denies back pain, Denies arthralgias, Denies joint swelling, Denies neck pain, Denies numbness and Denies tingling Integumentary/Breasts: Skin/Breast: Reports system reviewed and no additional complaints, except as docu and Denies rash Neurologic: Reports system reviewed and no additional complaints, except as documented, Denies Abnormal speech present, Denies dizziness, Denies headache(s), Denies numbness, Denies tingling and Denies weakness PMF Past Medical History Attestation statement: The following information was validated with the patient. Source: old records reviewed and nursing notes reviewed Medical History Depression Anxiety Family History Family History Father Substance use disorder Mental health disorder Mother Mental health disorder Social History Social History Housing: Apartment Patient Tobacco Use Status: Current everyday Tobacco user Cigarette Packs Per Day: 1 e-Cigarette/Vaping Use: Never Used Second Hand Smoke Exposure: Yes service: No Current occupational status: employed Current occupation: [employer] Current occupational exposures/hazards: Yes Cognitive needs: No Hearing needs: No Vision needs: No Physical Exam Vital Signs: Vital Signs: Last Vital Signs Temp 98.5 F 01/04/25 18:37 Pulse 81 01/04/25 18:37 Resp 18 01/04/25 18:37 BP 168/93 H 01/04/25 18:37 Pulse Ox 96 01/04/25 18:37 O2 Del Method Room Air 01/04/25 18:37 BMI result Body Mass Index 28.7 Const: General: cooperative, healthy appearing, comfortable and no acute distress Orientation/consciousness: patient oriented x3 Limitations: no limitations HEENT: Head: Yes normal to inspection Ears: hearing grossly normal bilaterally and TM's normal bilaterally General nose exam: Normal external nose present Face and sinus: Yes normal facial exam Mouth: Normal oral and palatal mucosa present Throat: Yes posterior oropharynx normal, Yes tonsils normal and Yes uvula midline Eyes: General: appearance normal, both eyes and all related structures Pupils: Equal, round and reactive pupils present Neck: Neck: Yes normal visual inspection, Yes full ROM, Yes no lymphadenopathy and Yes no meningeal signs Chest: Chest palpation & inspection: normal inspection of the chest Resp: Effort & Inspection: normal respiratory effort Auscultation: clear to auscultation bilaterally Cardio: Rate: regular rate Rhythm: regular rhythm Peripheral pulses: Peripheral pulses 2+ throughout GI: Inspection: Yes normal to inspection Palpation (GI): Soft to palpation and nontender Auscultation: normal bowel sounds Back/Spine/Pelvis: Thoracic/Lumbar Spine: thoracic and lumbar spine normal to inspection Skin: General skin exam: no rashes or lesions noted Neuro: General: patient oriented x3, no meningeal signs, no focal motor deficits and normal sensation to monofilament Cranial nerves: Yes Equal, round and reactive pupils present Cognition (Neuro): normal cognition Speech: No Abnormal speech present Gait exam (Neuro): Normal gait present Motor exam (neuro): 5/5 motor strength present throughout Extrem: General: Yes normal to inspection Medical Decision Making Medical Decision Making MDM Narrative: This is a 39-year-old male who has no medical history presents to the ER with complaints of sore throat for 4 days. Patient reports he went to urgent care yesterday and was negative for strep, flu, COVID, RSV. Patient reports continued symptoms prompting his ER visit. He denies any difficulty swallowing, difficulty breathing. No fevers, chills, neck pain, neck stiffness, skin rash, cough, shortness of breath, chest pain. Posterior oropharynx shows mild erythema. No exudate. Uvula is midline. No lymphadenopathy or meningeal signs. Patient is tolerating secretions with no difficulty Reviewed swabs from yesterday which are negative. Likely viral pharyngitis. Recommended supportive measures at home. Reviewed worrisome signs and symptoms of when to return to the emergency room. Comfortable plan for discharge home. Differential Diagnosis Differential Diagnoses: The differential diagnosis associated with the presentation includes Exam is not consistent with strep pharyngitis, peritonsillar abscess, retropharyngeal abscess, Will's angina, epiglottitis Admission/Observation Consideration of admission/observation: Escalation of care including admission/observation considered Exam is not consistent with strep pharyngitis, peritonsillar abscess, retropharyngeal abscess, Will's angina, epiglottitis requiring advanced imaging, urgent consultation and or admission Tests considered The following testing was considered but not selected: Exam is not consistent with strep pharyngitis, peritonsillar abscess, retropharyngeal abscess, Will's angina, epiglottitis requiring advanced imaging Discharge Plan Discharge Clinical Impression: Pharyngitis Patient Disposition: Home, Self-Care Instructions: Pharyngitis (ED) Additional Instructions: Consider buying cepacol lozenges Take Motrin or Tylenol as needed Take tea with honey for discomfort Lukewarm food, soft foods Follow-up with primary care doctor for any continued symptoms Prescriptions: No Action No Known Home Meds Referrals: Boy Lopez, [employer] [Primary Care Provider, Internal Medicine] Print Language: Japanese
[2025-01-04 19:02] VITALS: BP 168/93; PULSE 81; RESP 18; TEMP 36.9; O2SAT 96
== END 2025-01-04 19:02 | disposition home or self-care (01) ==
PROVIDERS: Emergency Provider Emergency Medicine; PCP Nurse Practitioner Family
DX: J02.9 Acute pharyngitis, unspecified (principal)
CPT/HCPCS: 99282